=== PATIENT | male | born 1960 | race American Indian/Alaskan Native ===

== ENCOUNTER 2020-01-14 09:04 | Emergency (ER) | payer SELFPAY ==
[2020-01-14] MEDS ORDERED: LORazepam 2 MG TAB PO PRN ×2 (09:24)
[2020-01-14] MEDS ORDERED: chlordiazePOXIDE 25 MG CAP PO PRN ×2 (09:24)
[2020-01-14] MEDS ORDERED: LORazepam 2 MG/ML VIAL IV PRN (09:24)
[2020-01-14] MEDS ORDERED: METOCLOPRAMIDE 10 MG TAB PO PRN (09:25)
--- NOTE | 2020-01-14 09:37 | Emergency Department Report ---
ED General Adult HPI - General Chief complaint: Seizure Stated complaint: SEIZURE PUI?: No Time Seen by Provider: 01/14/20 09:16 Source: patient, EMS (Verbal report received from emergency medical services. EMS documentation not available at time of chart dictation ), RN notes reviewed Mode of arrival: Stretcher Limitations: Altered Mental Status, Physical Limitation - History of Present Illness Initial comments: The patient was evaluated in the emergency department for symptoms described in the history of present illness. He/she was evaluated in the context of the global COVID-19 pandemic, which necessitated consideration that the patient might be at risk for infection with the virus that causes COVID-19. Institution al protocols and algorithms that pertain to the evaluation of patients at risk for COVID-19 are in a state of rapid change based on information released by regulatory bodies including the CDC and federal and state organizations. These policies and algorithms were followed during the patient's care in the emergency department. Please note that these policies, procedures and recommendations changed on a rapid basis. The patient is a 59-year-old gentleman. He is not known to myself previously. He reportedly has a history of seizures, and is supposed to be taking phenytoin/Dilantin. He is also reportedly blind. Patient brought to the hospital by emergency medical services, triage nurse in [facility] the patient was found sleeping at [facility] by staff, EMS states when they arrived the patient was drinking Listerine, and had a convulsive event last night. Patient denies physical pain. He is alert to person. He apparently has not had his Dilantin medication for about a month. He is not homicidal or suicidal. He does not know the month or the year. He does not have irritative urinary symptoms. Patient states that he "lives with friends." However, he is somewhat of a poor historian and disorganized. -: unknown Quality: other Consistency: other Improves with: other Worsens with: other Associated Symptoms: other - Related Data Previous Rx's Medication Instructions Recorded Last Taken Type Multivitamin with Folic Acid [Cvs 400 mcg PO QDAY #30 tablet 01/14/20 Unknown Rx One Daily Essential Tablet] chlordiazePOXIDE [Librium] 25 mg PO Q6H PRN #25 capsule 01/14/20 Unknown Rx levETIRAcetam [Keppra TAB] 500 mg PO BID #60 tablet 08/26/20 Unknown Rx Allergies Allergy/AdvReac Type Severity Reaction Status Date / Time No Known Allergies Allergy Unverified 01/14/20 09:06 ED Review of Systems ROS: Stated complaint: SEIZURE Other details as noted in HPI Comment: Unobtainable due to pts medical conditions Cardiovascular: denies: chest pain Gastrointestinal: denies: abdominal pain Genitourinary: denies: dysuria Neurological: denies: headache Psychiatric: denies: homicidal thoughts, suicidal thoughts ED Past Medical Hx - Past Medical History Previous Medical History?: Yes Hx Seizures: Yes Additional medical history: blind - Surgical History Past Surgical History?: No - Social History Smoking Status: Never Smoker Substance Use Type: None - Medications Home Medications: Home Medications Medication Instructions Recorded Confirmed Last Taken Type Multivitamin with Folic Acid [Cvs 400 mcg PO QDAY #30 tablet 01/14/20 Unknown Rx One Daily Essential Tablet] chlordiazePOXIDE [Librium] 25 mg PO Q6H PRN #25 capsule 01/14/20 Unknown Rx levETIRAcetam [Keppra TAB] 500 mg PO BID #60 tablet 01/14/20 Unknown Rx ED Physical Exam - General Limitations: Physical Limitation, Other (Patient is disorganized) General appearance: appears intoxicated - Head Head exam: Present: atraumatic, normocephalic - Eye Eye exam: Present: EOMI. Absent: normal appearance (Opacification of both corneas noted) - ENT ENT exam: Present: normal exam, normal orophraynx, mucous membranes moist, TM's normal bilaterally, normal external ear exam, other (There is no nasal septal hematoma. There is no hemotympanum) - Neck Neck exam: Present: normal inspection, full ROM. Absent: tenderness, meningismus - Respiratory Respiratory exam: Present: normal lung sounds bilaterally. Absent: respiratory distress - Cardiovascular Cardiovascular Exam: Present: normal rhythm, tachycardia, normal heart sounds. Absent: bradycardia, irregular rhythm, systolic murmur, diastolic murmur, rubs, gallop - GI/Abdominal GI/Abdominal exam: Present: soft. Absent: distended, tenderness, guarding, rebound, rigid, pulsatile mass - Rectal Rectal exam: Present: deferred - Extremities Exam Extremities exam: Present: normal inspection, full ROM, other (2+ pulses noted in the bilateral upper and lower extremities. There is no palpable cord. negative Homans sign. Muscular compartments are soft. The pelvis is stable.). Absent: pedal edema, calf tenderness - Back Exam Back exam: Present: normal inspection, full ROM. Absent: tenderness, CVA tenderness (R), CVA tenderness (L), paraspinal tenderness, vertebral tenderness - Neurological Exam Neurological exam: Present: other (No facial droop. Tongue midline. Extraocular movements intact bilaterally. Facial sensation intact to light touch in V1, V2, V3 distribution bilaterally. 5 and a 5 strength in 4 extremiti es. Sensation intact to light touch in 4 extremities.) - Psychiatric Psychiatric exam: Absent: homicidal ideation, suicidal ideation - Skin Skin exam: Present: warm, dry, intact, normal color. Absent: rash ED Course Vital Signs 01/14/20 01/14/20 01/14/20 09:15 09:30 09:46 Temperature Pulse Rate 114 H 107 H Respiratory 17 10 L Rate Blood Pressure 133/82 133/82 133/82 Blood Pressure [Left] O2 Sat by Pulse 99 100 Oximetry 01/14/20 01/14/20 01/14/20 10:54 11:00 11:01 Temperature 98.6 F Pulse Rate 125 H 120 H 94 H Respiratory 15 18 17 Rate Blood Pressure 133/82 155/96 Blood Pressure 133/82 [Left] O2 Sat by Pulse 96 98 Oximetry 01/14/20 01/14/20 01/14/20 11:15 11:30 11:45 Temperature Pulse Rate 115 H 116 H Respiratory 12 14 Rate Blood Pressure 157/98 157/98 154/104 Blood Pressure [Left] O2 Sat by Pulse 98 97 98 Oximetry 01/14/20 01/14/20 01/14/20 12:00 12:08 12:15 Temperature Pulse Rate 125 H Respiratory 20 21 Rate Blood Pressure 154/104 149/98 Blood Pressure 140/88 [Left] O2 Sat by Pulse 98 98 Oximetry 01/14/20 01/14/20 01/14/20 12:38 12:45 13:01 Temperature Pulse Rate 120 H 117 H 118 H Respiratory 22 18 16 Rate Blood Pressure 140/88 140/88 140/88 Blood Pressure [Left] O2 Sat by Pulse 96 98 Oximetry 01/14/20 01/14/20 01/14/20 13:15 13:30 13:45 Temperature Pulse Rate 141 H 117 H 107 H Respiratory 23 12 37 H Rate Blood Pressure 140/88 155/86 148/88 Blood Pressure [Left] O2 Sat by Pulse 98 95 96 Oximetry 01/14/20 01/14/20 01/14/20 14:01 14:15 14:30 Temperature Pulse Rate 136 H 101 H 113 H Respiratory 23 14 16 Rate Blood Pressure 136/117 175/94 171/102 Blood Pressure [Left] O2 Sat by Pulse 98 100 Oximetry 01/14/20 01/14/20 14:45 15:00 Temperature Pulse Rate 119 H 102 H Respiratory 13 14 Rate Blood Pressure 156/120 164/86 Blood Pressure [Left] O2 Sat by Pulse 98 98 Oximetry - Reevaluation(s) Reevaluation #1: 01/14/20 11:23 Differential diagnosis, including but not limited to: Seizure, alcohol in toxication, postictal state, electrolyte derangement, medication noncompliance, intracranial injury, cervical spine injury urinary tract infection Assessment and plan: 59-year-old gentleman who is clinically intoxicated, found down at a local store, may have had a convulsive event. He is cooperative, not homicidal or suicidal, but he does not have decision-making capacity, or the ability to care for himself independently at this time. CT scan of the brain, cervical spine negative for acute findings. X-ray of the chest negative for acute findings. Resting comfortably in his stretcher, in no acute distress. Screening laboratory studies ordered and pending at this time. We will reassess once his initial data points have resulted. He may require evaluation by case management and/or psychiatry, depending on initial diagnostics, and mental status. Reevaluation #2: 01/14/20 15:17 Patient is reevaluated multiple times. He initially was fairly tachycardic and tremulous, and appeared to have mild alcohol withdrawal with delirium. This appeared to be contributing to lack of decision-making capacity. He was medicated appropriately, and his tachycardia a nd fasciculations have resolved. He was evaluated by psychiatry, who advised that the patient in their opinion did have capacity, and they did not recommend 1013 or hold. The patient is chronically homeless for 16 years. This may be contributing to some of his disorganization. No active vomiting at this time, no seizures at this time. Initial basic metabolic panel/anion gap is likely secondary to alcoholic starvation ketosis, with probable/possible superimposed malnutrition and/or breakthrough seizure. Reevaluation #3: 01/14/20 16:11 Repeat basic metabolic panel shows improvement. Anion gap 17 including potassium. Patient observed for hours without clinical deterioration or decompensation. He is resting comfortably at this time. He will need to follow-up as an outpatient The patient did endorse interest in homeless detention. This demonstrates Appropriate thought process. He can wait in the waiting room /acute care for case management to provide him with outpatient resources. 01/14/20 16:18 ED Medical Decision Making - Lab Data Result diagrams: 01/14/20 10:51 01/14/20 14:53 Vital Signs 01/14/20 11:01 Temperature 98.6 F Pulse Rate 94 H Respiratory 17 Rate Blood Pressure 133/82 [Left] O2 Sat by Pulse 98 Oximetry Lab Results 01/14/20 01/14/20 Range/Units Unknown Unknown Urine Color Yellow (Yellow) Urine Turbidity Clear (Clear) Urine pH 5.0 (5.0-7.0) Ur Specific [place] 1.016 (1.003-1.030) Urine Protein 100 mg/dl (Negative) mg/dL Urine Glucose (UA) Neg (Negative) mg/dL Urine Ketones Neg (Negative) mg/dL Urine Blood Sm (Negative) Urine Nitrite Neg (Negative) Urine Bilirubin Neg (Negative) Urine Urobilinogen < 2.0 (<2.0) mg/dL Ur Leukocyte Esterase Neg (Negative) Urine WBC (Auto) 2.0 (0.0-6.0) /HPF Urine RBC (Auto) 2.0 (0.0-6.0) /HPF U Epithel Cells (Auto) 2.0 (0-13.0) /HPF Hyaline Casts 1 /LPF Urine Mucus Few /HPF Urine Opiates Screen Negative Urine Methadone Screen Negative Ur Barbiturates Screen Negative Ur Phencyclidine Scrn Negative Ur Amphetamines Screen Negative U Benzodiazepines Scrn Negative U Marijuana (THC) Screen Negative - EKG Data -: EKG Interpreted by Nv EKG shows normal: sinus rhythm Rate: tachycardia - EKG Data When compared to previous EKG there are: previous EKG unavailable 01/14/20 11:23 There is no prior EKG available for comparison. Sinus rhythm, tachycardia, 125 bpm, QTC 443 ms, motion artifact, the EKG is abnormal, the EKG is not a STEMI - Radiology Data Radiology results: report reviewed, image reviewed Print Report Referring Physician: FRANCI SAPP Patient Name: AHSAN SMART Date of : 1960 Sex: Male Report Date: 2020-01-14 Report Status: Finalized Findings [facility] [address] [place] [address] Cat Scan Report Signed Patient: AHSAN SMART MR#: [id number] : 1960 Acct:[id number] Age/Sex: 59 / M ADM Date: 01/14/20 Loc: ED Attending Dr: Ordering Physician: FRANCI SAPP MD Date of Service: 01/14/20 Procedure(s): CT head/brain wo con Accession Number(s): [id number] cc: FRANCI SAPP MD CT head/brain wo con INDICATION / CLINICAL INFORMATION: 59 years Male; sz, etoh intox, post ictal. TECHNIQUE: Routine CT head without contrast. All CT scans at this location are performed using CT dose reduction for ALARA by means of automated exposure control. COMPARISON: None. FINDINGS: BRAIN / INTRACRANIAL CONTENTS: No acute hemorrhage, mass effect, midline shift, hydrocephalus, or acute, large territorial infarct. Moderate cerebral and cerebellar atrophy. Moderate to marked degree of hippocampal atrophy suggested bilaterally. There are meyk-bh-[id number] areas of decreased attenuation in the white matter of the cerebral hemispheres. These are nonspecific findings and may be related to micro angiopathy (hypertension, diabetes, atherosclerosis), given the patient's age. It might be difficult to evaluate for small areas of ischemia without diffusion imaging by MRI. CRANIOCERVICAL JUNCTION: No significant abnormality. ORBITS: No significant abnormality of visualized orbits. SINUSES / MASTOIDS: Mild to moderate mucosal thickening seen in the left maxillary antrum. ADDITIONAL FINDINGS: Atherosclerotic disease is seen in the anterior and posterior circulation. IMPRESSION: 1. No focal mass, hemorrhage, hydrocephalus, or acute, large territorial infarct. Signer Name: Nirav Feng MD, III Signed: 01/14/2020 10:17 AM Workstation Name: [id number] Transcribed By: HR Dictated By: Nirav Feng MD Electronically Authenticated By: Nirav Feng MD Signed Date/Time: 01/14/20 1017 DD/ 1014 TD/TT: Print Report Referring Physician: FRANCI SAPP Patient Name: AHSAN SMART Date of : 1960 Sex: Male Report Date: 2020-01-14 Report Status: Finalized Findings [facility] [address] [place] [id number] Cat Scan Report Signed Patient: AHSAN SMART MR#: [id number] : 1960 Acct:[id number] Age/Sex: 59 / M ADM Date: 01/14/20 Loc: ED Attending Dr: Ordering Physician: FRANCI SAPP MD Date of Service: 01/14/20 Procedure(s): CT cervical spine wo con Accession Number(s): [id number] cc: FRANCI SAPP MD CT cervical spine wo con INDICATION / CLINICAL INFORMATION: 59 years Male; sz, etoh intox, post ictal. TECHNIQUE: Axial CT images of the cervical spine were obtained. Sagittal and coronal reformatted images were produced. All CT scans at this location are performed using CT dose reduction for ALARA by means of automated exposure control. COMPARISON: None available. FINDINGS: POST-SURGICAL CHANGES: None. ALIGNMENT: Normal cervical lordosis seen without significant scoliosis. VERTEBRAE: No signs of fracture. Vertebral bodies are grossly normal in height throughout. There is osseous foraminal narrowing on the left at C3-4 and C4-5 from uncinate and facet hypertrophy. Similar findings seen on the right from C3-4. INTRAVERTEBRAL DISCS:Mild disc disease seen at various levels. Small posterocentral disc protrusion seen at C3-4. Broad-based left paracentral disc protrusion seen at C6-7. No definitive signs of significant canal stenosis. PARASPINAL SOFT TISSUES: No significant abnormality. ADDITIONAL FINDINGS: None. IMPRESSION: 1. No signs of acute bony trauma to the cervical spine. Signer Name: Nirav Feng MD, III Signed: 01/14/2020 10:52 AM Workstation Name: [id number] Transcribed By: HR Dictated By: Nirav Feng MD Electronically Authenticated By: Nirav Feng MD Signed Date/Time: 01/14/20 1052 DD/ 1041 Print Report Referring Physician: FRANCI SEROTOFF Patient Name: AHSAN SMART Date of : 1960 Sex: Male Report Date: 2020-01-14 Report Status: Finalized Findings [facility] [address] [place] [address] XRay Report Signed Patient: AHSAN SMART MR#: [id number] : 1960 Acc t:[id number] Age/Sex: 59 / M ADM Date: 01/14/20 Loc: ED Attending Dr: Ordering Physician: FRANCI SAPP MD Date of Service: 01/14/20 Procedure(s): XR chest 1V ap Accession Number(s): [id number] cc: FRANCI SAPP MD Fluoro Time In Minutes: CHEST 1 VIEW 01/14/2020 9:04 AM INDICATION / CLINICAL INFORMATION: Seizure, alcohol intoxication, altered mental status. COMPARISON: None available. FINDINGS: SUPPORT DEVICES: None. HEART / MEDIASTINUM: No significant abnormality. LUNGS / PLEURA: No significant pulmonary or pleural abnormality. No pneumothorax. ADDITIONAL FINDINGS: There are multiple old right rib fractures as well as an old right clavicular fracture. Moderate degenerative/posttraumatic changes seen along the right humeral head. No significant additional findings. IMPRESSION: 1. No acute abnormality of the chest. Signer Name: Humberto Ramirez MD Signed: 01/14/2020 10:09 AM Workstation Name: [id number] Transcribed By: [place] Dictated By: Humberto Ramirez MD Electronically Authenticated By: Humberto Ramirez MD Signed Date/Time: 01/14/20 1009 DD/ 1006 TD/TT: Critical care attestation.: If time is entered above; I have spent that time in minutes in the direct care of this critically ill patient, excluding procedure time. ED Disposition Clinical Impression: History of seizure, Homelessness, Noncompliance Alcohol dependence Qualifiers: Substance use status: in withdrawal Complication of substance-induced condition: with unspecified complication Qualified Code(s): F10.239 - Alcohol dependence with withdrawal, unspecified Disposition: DC-01 TO HOME OR SELFCARE Is pt being admited?: No Does the pt Need Aspirin: No Condition: Stable Additional Instructions: Do not drive or operate motor vehicles for the next 6 months, or until cleared to do so by a primary care doctor. Recommend that patient abstain/discontinue alcohol consumption. Long-term consumption of alcohol may cause addiction, disability, loss of quality of life. Noncompliance with seizure medication may cause breakthrough seizure, which can cause , disability, paralysis, loss of quality of life. Please take the prescribed medications as needed/directed. Please follow-up with a primary care doctor within the next month. Please return to the emergency room right away with new pain, worsening pain, migration of pain, projectile vomiting, change in mental status, confusion, inability to tolerate liquid feeds. Drink at least 4 cups of water per day, and make certain to eat at least 3-4 meals per day. Prescriptions: Multivitamin with Folic Acid [Cvs One Daily Essential Tablet] 400 mcg PO QDAY #30 tablet levETIRAcetam [Keppra TAB] 500 mg PO BID #60 tablet chlordiazePOXIDE [Librium] 25 mg PO Q6H PRN #25 capsule PRN Reason: Alcohol Withdrawal Referrals: [facility] [Provider Group] - 3-5 Days [facility] [Provider Group] - 3-5 Days
[2020-01-14] MEDS ORDERED: levETIRAcetam 500 MG TAB PO SCH (10:00)
[2020-01-14] MEDS ORDERED: FOLIC ACID 1 MG TAB PO SCH (10:00)
[2020-01-14] MEDS ORDERED: MULTIVITAMINS ,THERAPEUTIC TAB PO SCH (10:00)
[2020-01-14] MEDS ORDERED: THIAMINE 100 MG TAB PO SCH (10:00)
[2020-01-14 10:07] LABS: Bilirubin,Urine NEG (Negative); Blood,Urine SM (Negative); Color,Urine Yellow (Yellow); Hyaline Casts,Urine 1 /LPF; Mucus,Urine FEW /HPF; Urobilinogen,Urine < 2.0 mg/dL (<2.0)
[2020-01-14 10:13] LABS: Amphetamine Screen,Urine Negative; Benzodiazepines Screen,Urine Negative; Cannabinoid Screen,Urine Negative; Methadone Screen,Urine Negative; Opiate Screen,Urine Negative
--- NOTE | 2020-01-14 10:14 | XRay Report ---
CHEST 1 VIEW 01/14/2020 9:04 AM INDICATION / CLINICAL INFORMATION: Seizure, alcohol intoxication, altered mental status. COMPARISON: None available. FINDINGS: SUPPORT DEVICES: None. HEART / MEDIASTINUM: No significant abnormality. LUNGS / PLEURA: No significant pulmonary or pleural abnormality. No pneumothorax. ADDITIONAL FINDINGS: There are multiple old right rib fractures as well as an old right clavicular fr acture. Moderate degenerative/posttraumatic changes seen along the right humeral head. No significant additional findings. IMPRESSION: 1. No acute abnormality of the chest. Signer Name: Humberto Ramirez MD Signed: 01/14/2020 10:09 AM Workstation Name: [id number]
--- NOTE | 2020-01-14 10:22 | Cat Scan Report ---
CT head/brain wo con INDICATION / CLINICAL INFORMATION: 59 years Male; sz, etoh intox, post ictal. TECHNIQUE: Routine CT head without contrast. All CT scans at this location are performed using CT dos e reduction for ALARA by means of automated exposure control. COMPARISON: None. FINDINGS: BRAIN / INTRACRANIAL CONTENTS: No acute hemorrhage, mass effect, midline shift, hydrocephalus, or acu te, large territorial infarct. Moderate cerebral and cerebellar atrophy. Moderate to marked degree of hippocampal atrophy suggested bilaterally. There are dlkh-lh-rltslzpt areas of decreased attenuation in the white matter of the cerebral hemisph eres. These are nonspecific findings and may be related to microangiopathy (hypertension, diabetes, a therosclerosis), given the patient's age. It might be difficult to evaluate for small areas of ischem ia without diffusion imaging by MRI. CRANIOCERVICAL JUNCTION: No significant abnormality. ORBITS: No significant abnormality of visualized orbits. SINUSES / MASTOIDS: Mild to moderate mucosal thickening seen in the left maxillary antrum. ADDITIONAL FINDINGS: Atherosclerotic disease is seen in the anterior and posterior circulation. IMPRESSION: 1. No focal mass, hemorrhage, hydrocephalus, or acute, large territorial infarct. Signer Name: Nirav Feng MD, III Signed: 01/14/2020 10:17 AM Workstation Name: [id number]
--- NOTE | 2020-01-14 10:56 | Cat Scan Report ---
CT cervical spine wo con INDICATION / CLINICAL INFORMATION: 59 years Male; sz, etoh intox, post ictal. TECHNIQUE: Axial CT images of the cervical spine were obtained. Sagittal and coronal reformatted images were pr oduced. All CT scans at this location are performed using CT dose reduction for ALARA by means of aut omated exposure control. COMPARISON: None available. FINDINGS: POST-SURGICAL CHANGES: None. ALIGNMENT: Normal cervical lordosis seen without significant scoliosis. VERTEBRAE: No signs of fracture. Vertebral bodies are grossly normal in height throughout. There is osseous foraminal narrowing on the left at C3-4 and C4-5 from uncinate and facet hypertrophy . Similar findings seen on the right from C3-4. INTRAVERTEBRAL DISCS:Mild disc disease seen at various levels. Small posterocentral disc protrusion s een at C3-4. Broad-based left paracentral disc protrusion seen at C6-7. No definitive signs of signif icant canal stenosis. PARASPINAL SOFT TISSUES: No significant abnormality. ADDITIONAL FINDINGS: None. IMPRESSION: 1. No signs of acute bony trauma to the cervical spine. Signer Name: Nirav Feng MD, III Signed: 01/14/2020 10:52 AM Workstation Name: [id number]
[2020-01-14] MEDS ORDERED: THIAMINE 100 MG, FOLIC ACID 1 MG, MULTIPLE VITAMIN INJ, ADULT 10 ML in SODIUM CHLORIDE ... IV ONE (11:42)
[2020-01-14 11:51] LABS: Hematocrit 37.4 % (35.5-45.6); Hemoglobin 12.6 gm/dl (11.8-15.2)
[2020-01-14 12:14] LABS: Cocaine Screen,Urine Positive
[2020-01-14 12:18] LABS: Alanine Aminotransferase 23 units/L (7-56); Albumin 4.9 g/dL (3.9-5); BUN/Creatinine Ratio 9; Blood Urea Nitrogen 7 mg/dL (9-20); Calcium 10.2 mg/dL (8.4-10.2); Hemolysis Index 4
[2020-01-14] MEDS ORDERED: diphenhydrAMINE 50 MG/ML VIAL IV ONE (12:38)
[2020-01-14] MEDS ORDERED: SODIUM CHLORIDE 0.9% 1000 ML 1,000 ML IV ONE (12:38)
[2020-01-14] MEDS ORDERED: LORazepam 2 MG/ML VIAL IV STA (12:38)
[2020-01-14] MEDS ORDERED: diazePAM 10 MG/2 ML SYRINGE IV ONE (12:40)
[2020-01-14 16:07] LABS: Blood Urea Nitrogen 7 mg/dL (9-20); Calcium 10.1 mg/dL (8.4-10.2); Hemolysis Index 9
[2020-01-14 16:10] LABS: BUN/Creatinine Ratio 10
[2020-01-14 16:33] VITALS: BP 170/90
== END 2020-01-14 17:23 | disposition home or self-care (01) ==
LOC: ED 09:04
DX: F10.239 Alcohol dependence with withdrawal, unspecified (principal); Z59.0 Homelessness; Z79.899 Other long term (current) drug therapy
CPT/HCPCS: 36415; 70450; 71045; 72125; 80048; 80053; 80186; 80307; 81001; 82550; 82962; 85014; 85018; 85049; 93005; 96365; 96366; 96375; 99285; J3360; J3411; J7030; 80320; G0480